=== PATIENT | female | born 1980 | race Caucasian/White ===

== ENCOUNTER 2025-02-08 22:27 | Emergency (ER) | payer BC ==
[~2025-02-08] VITALS: Ht 167.6 cm; Wt 65.8 kg
[2025-02-08] MEDS ORDERED: AMOX-430 PO (23:50)
[2025-02-08] MEDS ORDERED: LIDOCAINE 1% INJ 50 ML MDV IJ ONE (23:58)
[2025-02-09] MEDS ORDERED: AMOX/CLAVULANATE 875 MG TABLET ONE (00:33)
[2025-02-09] MEDS ORDERED: ACETAMINOPHEN 325 MG TABLET ONE (00:33)
[2025-02-09] MEDS: ACETAMINOPHEN 325 MG TABLET PO ONE (00:39)
[2025-02-09] MEDS: AMOX/CLAVULANATE 875 MG TABLET PO ONE (00:39)
[2025-02-09 01:08] VITALS: BP 105/65; TEMP 98; O2SAT 98
== END 2025-02-09 01:12 | disposition home or self-care (01) ==
LOC: ER 22:37
DX: S02.2XXA Fracture of nasal bones, initial encounter for closed fracture (principal); S01.512A Laceration without foreign body of oral cavity, initial encounter; R42 Dizziness and giddiness; W19.XXXA Unspecified fall, initial encounter; Y93.89 Activity, other specified; Y92.89 Other specified places as the place of occurrence of the external cause; Y99.8 Other external cause status
CPT/HCPCS: 99284; 70450; 12011; 70486; J3490